=== PATIENT | male | born 1990 | race American Indian/Alaskan Native ===

== ENCOUNTER 2018-05-07 11:51 | Emergency (ER) | payer MEDICAID ==
[2018-05-07] MEDS ORDERED: Sodium Chloride 0.9% 1,000 ML IV ONE (13:36)
[2018-05-07] MEDS ORDERED: Sodium Chloride 0.9% 1,000 ML ONE (13:42)
[2018-05-07 13:47] LABS: HEMOGLOBIN 14.9 g/dL (12.0-18.0); MEAN CELL VOLUME 81.6 fL (80.0-94.0); MEAN CORPUSCULAR HEMOGLOBIN 28.4 pg (27.0-31.0); MEAN CORPUSCULAR HGB CONC 34.7 g/dL (33.0-37.0); MEAN PLATELET VOLUME 7.8 fL (7.2-11.7); RBC 5.25 Mil/uL (4.40-5.90); RED CELL DISTRIBUTION WIDTH 14.1 % (11.5-14.5); WHITE BLOOD COUNT 5.6 K/uL (4.8-10.8)
[2018-05-07 14:03] VITALS: TEMP 99
[2018-05-07 14:12] LABS: BLOOD UREA NITROGEN 15 mg/dL (9-20); CALCIUM 10.1 mg/dl (8.6-10.4); GFR NON-AFRICAN AMERICAN > 60
--- NOTE | 2018-05-07 14:23 | C.PDOC ---
History Of Present Illness 27 year old male presents to the ED for evaluation of abdominal cramps, nausea, vomiting, and diarrhea for that last 5 days. Patient notes he has not been able to tolerate PO intake, vomiting and diarrhea x10 today. Denies sick contact, recent travel, blood in the stool, fever, and any other associated symptoms. Time Seen by Provider: 05/07/18 12:53 Chief Complaint (Nursing): Abdominal Pain History Per: Patient History/Exam Limitations: no limitations Onset/Duration Of Symptoms: Days Current Symptoms Are (Timing): Still Present Recent travel outside of the [place]: No Past Medical History Reviewed: Historical Data, Nursing Documentation, Vital Signs Vital Signs: Last Vital Signs Temp 99 F 05/07/18 14:03 Pulse 83 05/07/18 14:03 Resp 19 05/07/18 14:03 BP 127/80 05/07/18 14:03 Pulse Ox 100 05/07/18 14:03 Family History: States: Unknown Family Hx - Social History Hx Alcohol Use: No Hx Substance Use: No - Immunization History Hx Tetanus Toxoid Vaccination: No Hx Influenza Vaccination: No Hx Pneumococcal Vaccination: No Review Of Systems Constitutional: Negative for: Fever, Chills Gastrointestinal: Positive for: Nausea, Vomiting, Diarrhea, Other (abdominal cramping.) Physical Exam - Physical Exam Appears: Non-toxic, No Acute Distress Skin: Normal Color, Warm, Dry Head: Atraumatic, Normacephalic Eye(s): bilateral: Normal Inspection Oral Mucosa: Moist Neck: Normal ROM, Trachea Midline, Supple Chest: Symmetrical, No Deformity Cardiovascular: Rhythm Regular, No Murmur Respiratory: Normal Breath Sounds, No Rales, No Rhonchi, No Wheezing Gastrointestinal/Abdominal: Normal Exam, Soft, Tenderness (minimal diffuse abdominal tenderness.) Extremity: Normal ROM (x4) Neurological/Psych: Oriented x3, Normal Speech, Normal Motor, Normal Sensation, Normal Reflexes Gait: Steady ED Course And Treatment - Laboratory Results Result Diagrams: 05/07/18 13:39 05/07/18 13:39 O2 Sat by Pulse Oximetry: 100 (RA) Pulse Ox Interpretation: Normal Medical Decision Making Medical Decision Making: Plan: --Blood sent. --Given Ondansetron/1L NS bolus Progress/Update: Patient appears comfortable, stable for discharge home. Prescribed Bentyl and Zofran. Disposition - Disposition Disposition: HOME/ ROUTINE Disposition Time: 15:13 Condition: GOOD Additional Instructions: CYRUS BAKER, thank you for letting us take care of you today. Your provider was Celia Levy MD and you were treated for ABD PAIN. The emergency medical care you received today was directed at your acute symptoms. If you were prescribed any medication, please fill it and take as directed. It may take several days for your symptoms to resolve. Return to the Emergency Department if your symptoms worsen, do not improve, or if you have any other problems. Please contact your doctor or call one of the physicians/clinics you have been referred to that are listed on the Patient Visit Information form that is included in your discharge packet. Bring any paperwork you were given at discharge with you along with any medications you are taking to your follow up visit. Our treatment cannot replace ongoing medical care by a primary care provider outside of the emergency department. Thank you for allowing the [facility] team to be part of your care today. If you had an X-Ray or CT scan: A Radiologist will review the ED reading if any change in treatment is needed we will contact you. If you had a blood, urine, or wound culture: It will take several days for the results, if any change in treatment is needed we will contact you. If you had an STI test: It will take 48 hours for the results. Please call after 1 week if you have not heard back. Prescriptions: Dicyclomine [Bentyl] 10 mg PO QID #10 cap Ondansetron ODT [Zofran ODT] 4 mg PO Q8H #9 odt Instructions: Viral Gastroenteritis, Adult (DC) Forms: [employer] (Dominican) - Clinical Impression Clinical Impression: Gastroenteritis - Scribe Statement The provider has reviewed the documentation as recorded by the Scribe (Fouzia Gunn) Provider Attestation: All medical record entries made by the Scribe were at my direction and personally dictated by me. I have reviewed the chart and agree that the record accurately reflects my personal performance of the history, physical exam, medical decision making, and the department course for this patient. I have also personally directed, reviewed, and agree with the discharge instructions and disposition.
[2018-05-07 15:29] VITALS: BP 135/67; PULSE 76; RESP 16
[2018-05-08 16:32] VITALS: O2SAT 100
== END 2018-05-07 15:28 | disposition home or self-care (01) ==
LOC: EDSEX 11:51 → C.ER 11:51
DX: K52.9 Noninfective gastroenteritis and colitis, unspecified (principal)
CPT/HCPCS: 80048; 85027; 96361; 96374; 99285; J2405; J7030

== ENCOUNTER 2018-05-07 18:55 | Emergency (ER) | payer MEDICAID ==
[2018-05-07 19:01] VITALS: RESP 18; O2SAT 100
[2018-05-07] MEDS ORDERED: Sodium Chloride 0.9% 1,000 ML IV ONE (19:57)
--- NOTE | 2018-05-07 20:11 | C.PDOC ---
History Of Present Illness 27 y/o male presents to the ED for re-evaluation of persistent vomiting and diarrhea. Patient was evaluated earlier today, and states after leaving he vomited 5x on the car ride home. Patient then tried to take Zofran without improvement, reports unable to tolerate anything by mouth. Continues to have diarrhea. States that while vomiting he broke out in a sweat and developed chills, now returns to the ED requesting CT scan. Denies any chest pain, SOB, flank pain, dysuria, hematuria, or bloody stools. Time Seen by Provider: 05/07/18 19:47 Chief Complaint (Nursing): Abdominal Pain History Per: Patient History/Exam Limitations: no limitations Onset/Duration Of Symptoms: Days Current Symptoms Are (Timing): Worse Associated Symptoms: Vomiting, Diarrhea Past Medical History Reviewed: Historical Data, Nursing Documentation, Vital Signs Vital Signs: Last Vital Signs Temp 98.3 F 05/07/18 18:59 Pulse 67 05/07/18 18:59 Resp 18 05/07/18 18:59 BP 142/77 05/07/18 18:59 Pulse Ox 100 05/07/18 18:59 - Medical History PMH: No Chronic Diseases Surgical History: No Surg Hx Family History: States: Unknown Family Hx - Social History Hx Tobacco Use: No Hx Alcohol Use: Yes Hx Substance Use: No - Immunization History Hx Tetanus Toxoid Vaccination: No Hx Influenza Vaccination: No Hx Pneumococcal Vaccination: No Review Of Systems Constitutional: Positive for: Chills, Sweats. Negative for: Fever Cardiovascular: Negative for: Chest Pain Respiratory: Negative for: Shortness of Breath Gastrointestinal: Positive for: Vomiting, Abdominal Pain, Diarrhea Genitourinary: Negative for: Dysuria, Frequency, Incontinence, Hematuria Musculoskeletal: Negative for: Back Pain, Other (flank pain) Neurological: Negative for: Dizziness Physical Exam - Physical Exam Appears: Non-toxic, No Acute Distress, Other (Appears hydrated, VSS at bedside evaluation) Skin: Normal Color, Warm, Dry Head: Atraumatic, Normacephalic Eye(s): bilateral: Normal Inspection Oral Mucosa: Moist Neck: Normal ROM, Supple Chest: Symmetrical Cardiovascular: Rhythm Regular Respiratory: Normal Breath Sounds, No Rales, No Rhonchi, No Wheezing Gastrointestinal/Abdominal: Bowel Sounds (active), Soft, No Tenderness, No Distention, No Guarding Back: No CVA Tenderness, No Vertebral Tenderness Extremity: Bilateral: Atraumatic, Normal Color And Temperature, Normal ROM Neurological/Psych: Oriented x3, Normal Speech ED Course And Treatment - Laboratory Results Result Diagrams: 05/07/18 20:09 05/07/18 20:09 Lab Interpretation: Normal O2 Sat by Pulse Oximetry: 100 (RA) Pulse Ox Interpretation: Normal Reevaluation Time: 22:22 Reassessment Condition: Improved (Tolerating po fluids after IV fluids and medication.) Medical Decision Making Medical Decision Making: Plan: Blood work and urine sent. Administered IVF hydration, 4 mg Zofran, and 10 mg reglan IVP. Pending reassess and dispo. Disposition Counseled Patient/Family Regarding: Studies Performed, Diagnosis, Need For Foll owup, Rx Given - Disposition Referrals: [facility] [Outside] Disposition: HOME/ ROUTINE Disposition Time: 22:22 Condition: IMPROVED Prescriptions: Hyoscyamine Sulfate [Levsin-Sl] 0.125 mg SL QID PRN #10 tab.subl PRN Reason: Pain, Moderate (4-7) Instructions: Viral Gastroenteritis, Adult (DC) Forms: [employer] (Palestinian) - Clinical Impression Clinical Impression: Nausea, Vomiting, Diarrhea - Scribe Statement The provider has reviewed the documentation as recorded by the Scribe (Whit Marinelli) Provider Attestation: All medical record entries made by the Scribe were at my direction and personally dictated by me. I have reviewed the chart and agree that the record accurately reflects my personal performance of the history, physical exam, medical decision making, and the department course for this patient. I have also personally directed, reviewed, and agree with the discharge instructions and disposition.
[2018-05-07 20:12] LABS: BASO % 0.5 % (0.0-2.0); HEMOGLOBIN 15.2 g/dL (12.0-18.0); LYMPH # 1.4 K/uL (1.0-4.3); LYMPH % 22.4 % (20.0-40.0); MEAN CELL VOLUME 80.8 fL (80.0-94.0); MEAN CORPUSCULAR HEMOGLOBIN 28.1 pg (27.0-31.0); MEAN CORPUSCULAR HGB CONC 34.8 g/dL (33.0-37.0); MEAN PLATELET VOLUME 7.8 fL (7.2-11.7); MONO # 0.4 K/uL (0.0-0.8); MONO % 6.5 % (0.0-10.0); NEUT # 4.3 K/uL (1.8-7.0); NEUT % 70.6 % (50.0-75.0); NRBC % 0.8 % (0.0-2.0); RBC 5.4 Mil/uL (4.40-5.90); RED CELL DISTRIBUTION WIDTH 14.2 % (11.5-14.5); WHITE BLOOD COUNT 6.1 K/uL (4.8-10.8)
[2018-05-07] MEDS ORDERED: Sodium Chloride 0.9% 1,000 ML ONE (20:24)
[2018-05-07 20:34] LABS: BLOOD UREA NITROGEN 14 mg/dL (9-20); CALCIUM 9.8 mg/dl (8.6-10.4); GFR NON-AFRICAN AMERICAN > 60; LIPASE 27 U/L (23-300)
[2018-05-07 20:46] LABS: ALB/GLOB RATIO 1.2 (1.0-2.1); ALBUMIN 5.1 g/dL (3.5-5.0); ALT/SGPT 42 U/L (21-72); AST/SGOT 47 U/L (17-59)
[2018-05-07 22:43] LABS: SQUAMOUS EPITHIAL < 1 /hpf (0-5); URINE BACTERIA RARE (<OCC); URINE BILIRUBIN NEGATIVE (NEGATIVE); URINE BLOOD NEGATIVE (NEGATIVE); URINE CLARITY Clear (Clear); URINE COLOR Yellow (YELLOW); URINE GLUCOSE (UA) NORMAL (Normal); URINE LEUKOCYTE ESTERASE NEG Leu/uL (Negative); URINE PROTEIN NEGATIVE (NEGATIVE); URINE UROBILINOGEN NORMAL mg/dL (0.2-1.0)
[2018-05-07 23:49] VITALS: BP 125/63; PULSE 69; TEMP 98.7
== END 2018-05-07 22:20 | disposition home or self-care (01) ==
LOC: C.ER 18:55 → SUPCPDRO 18:55 → C.ER 20:20
DX: R11.2 Nausea with vomiting, unspecified (principal); R19.7 Diarrhea, unspecified
CPT/HCPCS: 80053; 81001; 83690; 85025; 96361; 96374; 96375; 99284; J2405; J2765; J7030

== ENCOUNTER 2018-08-27 13:04 | Emergency (ER) | payer MEDICAID ==
[2018-08-27 13:13] VITALS: BMI 27.3
[2018-08-27 13:14] VITALS: RESP 18; O2SAT 100
[2018-08-27] MEDS ORDERED: Sodium Chloride 0.9% 1,000 ML IV ONE (13:50)
--- NOTE | 2018-08-27 14:07 | C.PDOC ---
History Of Present Illness 28 year old male presents to the ED for evaluation of cough, generalized body aches, fever, vomiting and diarrhea which began two days ago. Patient back pain or urinary symptoms at this time. Time Seen by Provider: 08/27/18 13:10 Chief Complaint (Nursing): GI Problem History Per: Patient History/Exam Limitations: no limitations Onset/Duration Of Symptoms: Days (2) Current Symptoms Are (Timing): Still Present Additional History Per: Patient Past Medical History Reviewed: Historical Data, Nursing Documentation, Vital Signs Vital Signs: Last Vital Signs Temp 98.8 F 08/27/18 13:12 Pulse 68 08/27/18 13:12 Resp 18 08/27/18 13:12 BP 144/85 08/27/18 13:12 Pulse Ox 100 08/27/18 13:12 - Medical History PMH: No Chronic Diseases Surgical History: No Surg Hx Family History: States: Unknown Family Hx - Social History Hx Tobacco Use: No Hx Alcohol Use: No (pt denies) Hx Substance Use: No - Immunization History Hx Tetanus Toxoid Vaccination: No Hx Influenza Vaccination: No Hx Pneumococcal Vaccination: No Review Of Systems Constitutional: Positive for: Fever Respiratory: Positive for: Cough Gastrointestinal: Positive for: Vomiting, Diarrhea Genitourinary: Negative for: Dysuria, Frequency, Hematuria Musculoskeletal: Positive for: Other (generalized body aches ). Negative for: Back Pain Physical Exam - Physical Exam Appears: Non-toxic, No Acute Distress Skin: Normal Color, Warm, Dry, No Rash Head: Atraumatic, Normacephalic Eye(s): bilateral: Normal Inspection Ear(s): Bilateral: Normal Nose: Normal, No Discharge Oral Mucosa: Moist Throat: Normal, No Erythema, No Exudate Neck: Normal ROM, Supple Chest: Symmetrical, No Deformity, No Tenderness Cardiovascular: Rhythm Regular, No Friction Rub, No Murmur Respiratory: Normal Breath Sounds, No Rales, No Rhonchi, No Wheezing Gastrointestinal/Abdominal: Soft, No Tenderness, No Guarding, No Rebound Extremity: Normal ROM, Capillary Refill (less than 2 seconds ), No Swelling Neurological/Psych: Oriented x3, Normal Speech, Normal Cognition Gait: Steady ED Course And Treatment - Laboratory Results Result Diagrams: 08/27/18 13:57 08/27/18 14:47 O2 Sat by Pulse Oximetry: 100 (on RA ) Pulse Ox Interpretation: Normal Medical Decision Making Medical Decision Making: Progress: Bloodowork and urinalysis ordered and reviewed. Pepcid IVP, Toradol IVP, Zofran IVP and IV Fluids given. On re-exam, the patient reports improvement of symptoms. Lungs are CTA, heart is RRR, Abdomen is soft, non-tender and the patient tolerating PO well. Ambulatory in the ED with steady gait. Follow up with the medical doctor within 1-2 days. return if worsened. Disposition - Disposition Referrals: [facility] [Outside] [facility] [Outside] Disposition: HOME/ ROUTINE Disposition Time: 17:58 Condition: IMPROVED Additional Instructions: Follow up with the medical doctor within 1-2 days. return if worsened. 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 - Scribe Statement The provider has reviewed the documentation as recorded by the Scribe (Rehana Apodaca) All medical record entries made by the Scribe were at my direction and personally dictated by me. I have reviewed the chart and agree that the record accurately reflects my personal performance of the history, physical exam, medical decision making, and the department course for this patient. I have also personally directed, reviewed, and agree with the discharge instructions and disposition.
[2018-08-27] MEDS ORDERED: Sodium Chloride 0.9% 1,000 ML ONE (14:14)
[2018-08-27 14:22] LABS: BASO % 0.3 % (0.0-2.0); HEMOGLOBIN 16.7 g/dL (12.0-18.0); MEAN PLATELET VOLUME 7.7 fL (7.2-11.7); MONO # 0.3 K/uL (0.0-0.8); MONO % 2.5 % (0.0-10.0); NEUT # 10.8 K/uL (1.8-7.0); NEUT % 89.2 % (50.0-75.0); PLATELET COUNT 313 K/uL (130-400); RBC 5.95 Mil/uL (4.40-5.90)
[2018-08-27 14:23] LABS: URINE BILIRUBIN 1+ (NEGATIVE); URINE CLARITY HAZY (Clear); URINE COLOR AMBER (YELLOW); URINE GLUCOSE (UA) Normal (Normal)
[2018-08-27 14:24] LABS: URINE BLOOD NEGATIVE (NEGATIVE); URINE LEUKOCYTE ESTERASE NEGATIVE Leu/uL (Negative); URINE PROTEIN 1+ mg/dL (NEGATIVE)
[2018-08-27 14:29] LABS: MEAN CELL VOLUME 84.8 fL (80.0-94.0); WHITE BLOOD COUNT 12.1 K/uL (4.8-10.8)
[2018-08-27 15:12] LABS: LYMPHOCYTE 6 % (20-40); MONOCYTE 1 % (0-10); NEUTROPHIL 93 % (50-75); PLATELET ESTIMATE NORMAL (NORMAL); TOTAL CELLS COUNTED 100
[2018-08-27 15:35] LABS: BLOOD UREA NITROGEN 13 mg/dL (9-20); GFR NON-AFRICAN AMERICAN > 60
[2018-08-27 15:36] LABS: ALB/GLOB RATIO 1.3 (1.0-2.1); ALBUMIN 5.1 g/dL (3.5-5.0); ALT/SGPT 68 U/L (21-72); AST/SGOT 52 U/L (17-59); CALCIUM 9.2 mg/dl (8.6-10.4)
[2018-08-27 15:37] LABS: LIPASE 31 U/L (23-300)
[2018-08-27] MEDS ORDERED: Iohexol 350mg/ml 100 ML ONE (16:21)
--- NOTE | 2018-08-27 17:18 | CT ---
Date of service: 08/27/2018 PROCEDURE: CT Abdomen and Pelvis with contrast HISTORY: diffuse abd pain, vomiting, COMPARISON: None available. TECHNIQUE: Contrast dose: 100 mL Omnipaque 350 Radiation dose: Total exam DLP = 841.23 mGy-cm. This CT exam was performed using one or more of the following dose reduction techniques: Automated exposure control, adjustment of the mA and/or kV according to patient size, and/or use of iterative reconstruction technique. FINDINGS: LOWER THORAX: No visible consolidation, pleural effusion, or pneumothorax. LIVER: Hypoattenuation about the falciform ligament, possibly focal fat. GALLBLADDER AND BILE DUCTS: Unremarkable. PANCREAS: Unremarkable. SPLEEN: Unremarkable. ADRENALS: Unremarkable. KIDNEYS AND URETERS: The kidneys enhance symmetrically. No hydronephrosis or obstructing calculus identified. VASCULATURE: No aortic aneurysm. No atherosclerotic calcification or mural plaque present. BOWEL: Stomach is nondistended. Lack of oral contrast limits evaluation for bowel pathology. Bowel loops appear within normal limits of caliber without evidence of obstruction. Right colonic wall thickening/edema; correlate clinically for possibility of colitis. APPENDIX: The appendix appears within normal limits of caliber. No secondary signs of acute appendicitis. PERITONEUM: No significant free fluid. No definite free air. LYMPH NODES: No bulky adenopathy identified. BLADDER: Unremarkable. REPRODUCTIVE: Unremarkable. BONES: No acute osseous abnormality is detected. OTHER FINDINGS: None. IMPRESSION: Colonic wall thickening/edema; correlate clinically for possibility of colitis. Hypoattenuation adjacent to the falciform ligament may reflect focal fatty infiltration.
[2018-08-27 18:34] VITALS: BP 152/76; PULSE 80; TEMP 99
== END 2018-08-27 18:34 | disposition home or self-care (01) ==
LOC: C.ER 13:04
DX: K52.9 Noninfective gastroenteritis and colitis, unspecified (principal)
CPT/HCPCS: 74177; 80053; 81001; 83690; 85025; 96374; 96375; 99285; J1885; J2270; J2405; J2765; J7030; Q9967

== ENCOUNTER 2018-08-28 09:15 | Emergency (ER) | payer MEDICAID ==
[2018-08-28 09:15] VITALS: BMI 27.3
[2018-08-28 09:21] VITALS: PULSE 82; RESP 18; O2SAT 100
[2018-08-28] MEDS ORDERED: Sodium Chloride 0.9% 1,000 ML IV ONE (09:31)
--- NOTE | 2018-08-28 09:38 | C.PDOC ---
History Of Present Illness 28 y/o male brought to ER by ambulance complaining of fever, cough, body aches, abdominal pain, vomiting, and diarrhea which began 3 days ago. Patient was evaluated for similar symptoms yesterday. Patient reports that he had CT Scan and he was discharged. He notes that he continues to have the symptoms. Time Seen by Provider: 08/28/18 09:17 Chief Complaint (Nursing): Abdominal Pain History Per: Patient History/Exam Limitations: no limitations Onset/Duration Of Symptoms: Days Current Symptoms Are (Timing): Still Present Severity: Moderate Past Medical History Reviewed: Historical Data, Nursing Documentation, Vital Signs Vital Signs: Last Vital Signs Temp 98.4 F 08/28/18 09:17 Pulse 82 08/28/18 09:17 Resp 18 08/28/18 09:17 BP 146/80 08/28/18 09:17 Pulse Ox 100 08/28/18 09:17 - Medical History PMH: No Chronic Diseases Surgical History: No Surg Hx Family History: States: No Known Family Hx - Social History Hx Tobacco Use: No Hx Alcohol Use: No (pt denies) Hx Substance Use: No - Immunization History Hx Tetanus Toxoid Vaccination: No Hx Influenza Vaccination: No Hx Pneumococcal Vaccination: No Review Of Systems Except As Marked, All Systems Reviewed And Found Negative. Constitutional: Positive for: Fever. Negative for: Chills Respiratory: Positive for: Cough Gastrointestinal: Positive for: Vomiting, Abdominal Pain, Diarrhea Genitourinary: Negative for: Dysuria, Hematuria Physical Exam - Physical Exam Appears: Non-toxic, No Acute Distress Skin: Normal Color, Warm, Dry Head: Atraumatic, Normacephalic Eye(s): bilateral: Normal Inspection Ear(s): Bilateral: Normal Nose: Normal Oral Mucosa: Moist Neck: Supple Chest: Symmetrical Cardiovascular: Rhythm Regular Respiratory: Normal Breath Sounds, No Rales, No Rhonchi, No Wheezing Gastrointestinal/Abdominal: Soft, Tenderness (diffuse abdominal tenderness), No Guarding, No Rebound Neurological/Psych: Oriented x3, Normal Speech ED Course And Treatment O2 Sat by Pulse Oximetry: 100 (RA) Pulse Ox Interpretation: Normal Medical Decision Making Medical Decision Making: Plan: --Bentyl IM --Zofran IV --Toradol IV Disposition Counseled Patient/Family Regarding: Studies Performed, Diagnosis, Need For Followup - Disposition Referrals: [facility] [Outside] [facility] [Outside] Disposition: HOME/ ROUTINE Disposition Time: 11:30 Condition: IMPROVED Additional Instructions: Drink lots of fluids Take medication as directed Prescriptions: Dicyclomine [Bentyl] 10 mg PO QID PRN #12 cap PRN Reason: Gi Distress Instructions: Viral Gastroenteritis, Child (DC) Forms: [employer] (Taiwanese) - POA Present On Arrival: None - Clinical Impression Clinical Impression: Abdominal pain, 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 - Scribe Statement The provider has reviewed the documentation as recorded by the Rohini Abad Provider Attestation All medical record entries made by the Emmaibbibi were at my direction and personally dictated by me. I have reviewed the chart and agree that the record accurately reflects my personal performance of the history, physical exam, medical decision making, and the department course for this patient. I have also personally directed, reviewed, and agree with the discharge instructions and disposition.
[2018-08-28] MEDS ORDERED: Sodium Chloride 0.9% 1,000 ML ONE (10:15)
[2018-08-28 11:29] VITALS: BP 134/82; TEMP 98.1
== END 2018-08-28 11:35 | disposition home or self-care (01) ==
LOC: C.ER 09:15
DX: K52.9 Noninfective gastroenteritis and colitis, unspecified (principal); R10.9 Unspecified abdominal pain
CPT/HCPCS: 96361; 96372; 96374; 96375; 99284; J0500; J1885; J2405; J7030